=== PATIENT | female | born 1965 | race African-American/Black ===

== ENCOUNTER 2018-03-31 12:16 | Observation (INO) ==
[2018-03-31] MEDS ORDERED: Acetaminophen 500 MG Tablet PO PRN (20:53)
[2018-03-31 21:46] LABS: Creatine Kinase 159 U/L (26-192)
--- NOTE | 2018-03-31 22:26 | ECG ---
Date Performed: 03/31/2018 Time Performed: 20:04:48 PTAGE: 52 years EKG: Sinus rhythm POSSIBLE LEFT ATRIAL ENLARGEMENT POSSIBLE LEFT VENTRICULAR HYPERTROPHY ABNORMAL ECG NO PREVIOUS TRACING DOCTOR: Brian Freitas Interpretating Date/Time 03/31/2018 22:25:59
[2018-03-31] MEDS ORDERED: Temazepam 15 MG Capsule PO SCH (23:00)
[2018-04-01 01:12] VITALS: RESP 18
[2018-04-01 07:44] VITALS: BP 147/69; PULSE 83; TEMP 98.2; O2SAT 94
[2018-04-01] MEDS ORDERED: LORazepam 0.5 MG Tablet PO ONE (09:15)
--- NOTE | 2018-04-01 09:41 | P.HPCA ---
History of Present Illness Primary Care Physician: UNKNOWN Chief Complaint: Chest pain History of Present Illness: This is a 52-year-old female with stated history of hypertension but took a sulfa medication 3 months ago that presents to ED after being initially seen in the [place] ED for chest discomfort. Patient states that her mother just 02/27/18 and she has been having a hard time with her grieving process. States that her primary care physician has placed her on Xanax but does not seem to be working lately. Yesterday while at work patient states "thought I was about to break down, I thought I was having a panic attack." She developed a chest tightness while having this event lasted about 2 hours. She was given sublingual nitroglycerin and IV Ativan in the ED and states her symptoms resolved at that time. She still feeling anxious and extremely sad and but the chest discomfort has not recurred. - Diagnosis (1) Chest pain (2) Hypertension Review of Systems General: Patient denies fevers, chills, and recent travel. Patient cries intermittently during examination, states she is really sad and is having a difficult time with the grieving process. HEENT: Patient denies headache, sore throat, difficulty swallowing. Cardiovascular: Has the chest discomfort as mentioned above. Denies sensation of heart beating rapidly or irregularly. No syncope. Denies diaphoresis. Respiratory: She was short of breath. Denies shortness of breath or inspirational chest discomfort. Denies coughing wheezing or hemoptysis. GI: She was nauseous. Patient denies nausea, vomiting, diarrhea, abdominal pain , bloody stools. Musculoskeletal: Patient denies joint pain or edema. Denies calf pain or edema. Neurovascular: Patient denies numbness, tingling, weakness in extremities. Denies headache. Endocrine: Denies polyuria and polydipsia. Hematologic: Denies easy bruising. Psych: Patient states she is been very saddened since her mother's passing. Denies having suicidal or homicidal thoughts. Skin: Denies rash or itching. PMFSH - History History Provided By: Patient - Medical History Medical History: Medical History (Last Reviewed 03/31/18 @ 14:00 by Ag Dave DO) Anxiety Depression Hx of hysterectomy Hypertension - Tobacco History Second Hand Smoke Exposure: No Smoking Status: Never smoker - Alcohol History How Often Do You Have a Drink Containing Alcohol: Never - Substance Use History Substance History: No History of Abuse Medications and Allergies Active Medications: Active Medications Acetaminophen (Tylenol) 500 mg PO Q4H PRN PRN Reason: HEADACHE Ondansetron HCl (Zofran Inj) 4 mg IV.PUSH Q6H PRN PRN Reason: NAUSEA OR VOMITING Temazepam (Restoril) 30 mg PO HS [facility] Last Admin: 04/01/18 00:18 Dose: 30 mg Allergies Allergy/AdvReac Type Severity Reaction Status Date / Time tetracycline Allergy Hives Verified 03/31/18 12:20 Home Medications Medication Instructions Recorded Confirmed Type alprazolam [Xanax] 0.5 mg PO BID 03/31/18 03/31/18 History zolpidem [Ambien] 10 mg PO HS 03/31/18 03/31/18 History Exam Vital signs: Vital Signs 03/31/18 19:00 03/31/18 20:14 03/31/18 21:19 Temperature 97.7 F 98.8 F Pulse Rate 78 72 76 Respiratory Rate 17 16 Blood Pressure 133/81 135/69 137/83 Pulse Oximetry 99 99 97 04/01/18 00:00 04/01/18 07:41 Temperature 98.5 F 98.2 F Pulse Rate 80 83 Respiratory Rate 18 18 Blood Pressure 122/62 147/69 H Pulse Oximetry 92 L 94 L Intake & Output 03/31/18 04/01/18 04/01/18 18:59 06:59 18:59 Other: Weight On Admission 79.5 kg Narrative: GENERAL: This is a well-nourished, well-developed patient, in no apparent distress. She cries intermittently throughout the examination. Patient speaks in clear complete sentences. Patient is pleasant. HEENT: Head is atraumatic and normocephalic. Neck is supple without lymphadenopathy and trachea is midline. No JVD or carotid bruits. CARDIOVASCULAR: Regular rate and rhythm without murmurs, gallops, or rubs. RESPIRATORY: Clear to auscultation. Breath sounds equal bilaterally. No wheezes , rales, or rhonchi. Chest wall is nontender. No use of accessory muscles. GASTROINTESTINAL: Abdomen is nontender, nondistended. Abdomen soft. No obvious pulsatile mass or bruit. No CVA tenderness. Strong femoral pulses bilaterally. Normal bowel sounds in all quadrants. MUSCULOSKELETAL: Patient is moving upper and lower extremities freely. No calf tenderness or edema, no Homans sign. Strong pulses in upper and lower extremities. NEUROLOGICAL: Patient is alert and oriented. Cranial nerves 2-12 are grossly intact. No focal deficits and speech is clear. SKIN: No rash and turgor is normal. Results Cardiac Enzymes 03/31/18 Range/Units 20:45 CK-MB (CK-2) Less than 1.0 (0.5-3.6) ng/mL Troponin I Less than 0.02 L (0.02-0.05) ng/mL Intake and Output 03/31/18 04/01/18 04/01/18 22:59 06:59 14:59 Other: Weight On Admission 79.5 kg EKG interpretations - EKG EKG shows: sinus rhythm (EKGs are sinus rhythm without significant ST segment depressions or elevations.) Caprini VTE Risk Assessment Caprini VTE Risk Assessment: No/Low Risk (score <= 1) Caprini Risk Assessment Model: Point Value = 1 Point Value = 2 Point Value = 3 Point Value = 5 Age 41-60 Minor surgery BMI > 25 kg/m2 Swollen legs Varicose veins or History of unexplained or recurrent spontaneous Oral contraceptives or hormone replacement Sepsis (< 1 month) Serious lung disease, including pneumonia (< 1 month) Abnormal pulmonary function Acute myocardial infarction Congestive heart failure (< 1 month) History of inflammatory bowel disease Medical patient at bed rest Age 61-74 Arthroscopic surgery Major open surgery (> 45 min) Laparoscopic surgery (> 45 min) Malignancy Confined to bed (> 72 hours) Immobilizing plaster cast Central venous access Age >= 75 History of VTE Family history of VTE Factor V Leiden Prothrombin [id number] Lupus anticoagulant Anticardiolipin antibodies Elevated serum homocysteine Heparin-induced thrombocytopenia Other congenital or acquired thrombophilia Stroke (< 1 month) Elective arthroplasty Hip, pelvis, or leg fracture Acute spinal cord injury (< 1 month) Prophylaxis Regimen: Total Risk Factor Score Risk Level Prophylaxis Regimen 0-1 Low Early ambulation 2 Moderate Order ONE of the following: *Sequential Compression Device (SCD) *Heparin 5000 units SQ BID 3-4 Higher Order ONE of the following medications: *Heparin 5000 units SQ TID *Enoxaparin/Lovenox 40 mg SQ daily (WT < 150 kg, CrCl > 30 mL/min) *Enoxaparin/Lovenox 30 mg SQ daily (WT < 150 kg, CrCl > 10-29 mL/min) *Enoxaparin/Lovenox 30 mg SQ BID (WT < 150 kg, CrCl > 30 mL/min) AND/OR *Sequential Compression Device (SCD) 5 or more Highest Order ONE of the following medications: *Heparin 5000 units SQ TID (Preferred with Epidurals) *Enoxaparin/Lovenox 40 mg SQ daily (WT < 150 kg, CrCl > 30 mL/min) *Enoxaparin/Lovenox 30 mg SQ daily (WT < 150 kg, CrCl > 10-29 mL/min) *Enoxaparin/Lovenox 30 mg SQ BID (WT < 150 kg, CrCl > 30 mL/min) AND *Sequential Compression Device (SCD) Assessment and Plan - Assessment (1) Chest pain Code(s): R07.9 - Chest pain, unspecified Status: Acute (2) Hypertension Code(s): I10 - Essential (primary) hypertension Status: Acute - Plan * Chest pain: Patient has had serial cardiac enzymes and EKGs for ruling out purposes. She will be seen by Dr. Grayson of cardiology in the chest pain center. She will undergo a Tom protocol ETT and will be discharged home if her stress test is nonischemic with instructions to follow-up with PCP. Return to ED for interval issues. * Hypertension: Patient states she has history of hypertension but has not been on medications for a few months as she states she discontinued herself. Her blood pressures have been okay and chest pain center. She should continue to monitor and further discuss this with her PCP. Patient is stable at this time. She is agreeable to this plan.
[2018-04-01] MEDS ORDERED: Metoprolol Tartrate 25 MG Tablet PO SCH (11:00)
--- NOTE | 2018-04-01 11:06 | P.PNCA ---
Subjective Interval history: This 52-year-old lady was presented by the physician forestry aide and then personally seen the history was retaken and the patient was examined. I am in agreement with the documentation as entered. Physical examination revealed a heavy black lady in no acute distress but very tearful Chest breath sounds were clear but somewhat diminished Cardiovascular regular rhythm no gallops rubs or murmurs Psychologic revealed a very anxious depressed lady who appears to be going through the grieving process Otherwise as described in the record After discussion the decision was made to proceed with chest pain center protocol and exercise stress testing. Also spent time with her discussing her issues with grieving and some options for support and help. Physical examination is as described Medications and Allergies Active Medications: Active Medications Acetaminophen (Tylenol) 500 mg PO Q4H PRN PRN Reason: HEADACHE Metoprolol Tartrate (Lopressor) 25 mg PO BID [facility] Ondansetron HCl (Zofran Inj) 4 mg IV.PUSH Q6H PRN PRN Reason: NAUSEA OR VOMITING Temazepam (Restoril) 30 mg PO HS [facility] Last Admin: 04/01/18 00:18 Dose: 30 mg Allergies Allergy/AdvReac Type Severity Reaction Status Date / Time tetracycline Allergy Hives Verified 03/31/18 12:20 Home Medications Medication Instructions Recorded Confirmed Type alprazolam [Xanax] 0.5 mg PO BID 03/31/18 03/31/18 History zolpidem [Ambien] 10 mg PO HS 03/31/18 03/31/18 History Physical Exam Vital signs: Vital Signs 03/31/18 19:00 03/31/18 20:14 03/31/18 21:19 Temperature 97.7 F 98.8 F Pulse Rate 78 72 76 Respiratory Rate 17 16 Blood Pressure 133/81 135/69 137/83 Pulse Oximetry 99 99 97 04/01/18 00:00 04/01/18 07:41 Temperature 98.5 F 98.2 F Pulse Rate 80 83 Respiratory Rate 18 18 Blood Pressure 122/62 147/69 H Pulse Oximetry 92 L 94 L Intake & Output 03/31/18 04/01/18 04/01/18 18:59 06:59 18:59 Other: Weight On Admission 79.5 kg Results Cardiac Enzymes 03/31/18 Range/Units 20:45 CK-MB (CK-2) Less than 1.0 (0.5-3.6) ng/mL Troponin I Less than 0.02 L (0.02-0.05) ng/mL Intake and Output 03/31/18 04/01/18 04/01/18 22:59 06:59 14:59 Other: Weight On Admission 79.5 kg Assessment and Plan - Assessment (1) Chest pain Code(s): R07.9 - Chest pain, unspecified Status: Acute (2) Hypertension Code(s): I10 - Essential (primary) hypertension Status: Acute - Plan * Chest pain: Patient has had serial cardiac enzymes and EKGs for ruling out purposes. She will be seen by Dr. Grayson of cardiology in the chest pain center. She will undergo a Tom protocol ETT and will be discharged home if her stress test is nonischemic with instructions to follow-up with PCP. Return to ED for interval issues. * Hypertension: Patient states she has history of hypertension but has not been on medications for a few months as she states she discontinued herself. Her blood pressures have been okay and chest pain center. She should continue to monitor and further discuss this with her PCP. Patient is stable at this time. She is agreeable to this plan.
--- NOTE | 2018-04-01 11:34 | TR ---
Date Performed: 04/01/2018 Time Performed: 10:07:17 DOCTOR: Fran Grayson DRUG LIST: CLINICAL HISTORY: REASON FOR TEST: REASON FOR ENDING: OBSERVATION: CONCLUSION: ANNE PROTOCOL. NO CP. TEST STOPPED AFTER EXCEEDING GOAL HR SECONDARY TO LEG FATIGUE AND MILD SOB.Maximum FP=311 % Max HR Achieved=86.0% Maximum AL=916/92 Total Exercise Time=8:00 COMMENTS: Patient demonstrated good exercise capacity without symptoms. She did show some J-poi nt depression but this was associated with rapidly upsloping ST segments which are nondiagnostic for ischemia. Low probability of clinically significant ischemic heart disease as a cause of current pre sentation.
== END 2018-04-01 12:17 | disposition home or self-care (01) ==
LOC: NEDDLT 12:16 → NEPGCP 12:16
PROVIDERS: ADMIT Internal Medicine Cardiovascular Disease; ATTEND Internal Medicine Cardiovascular Disease